=== PATIENT | female | born 1980 | race Caucasian/White ===

== ENCOUNTER 2021-05-16 12:16 | Day surgery (SDC) | payer MEDICAID ==
[~2021-05-16] VITALS: Ht 162.6 cm; Wt 78.5 kg
[~2021-05-16 12:16] MED LIST: BUPIVACAINE/PF 0.25% ONE; EPINEPHRINE 1 MG/ML, 1ML ONE
[2021-05-16] MEDS ORDERED: INSU100C SQ-INSULIN (13:13)
[2021-05-16] MEDS ORDERED: INSU100V8 SQ (13:13)
[2021-05-16] MEDS ORDERED: MIDAZOLAM 1 MG/ML, 2ML ONE (13:13)
[2021-05-16] MEDS ORDERED: FENTANYL PF 100 MCG/2ML ONE ×4 (13:14→14:27)
[2021-05-16] MEDS ORDERED: CHLORHEXIDINE 15 ML UDC PO ONE (13:30)
[2021-05-16] MEDS ORDERED: LACTATED RINGERS 1,000 ML IV SCH (13:30)
[2021-05-16 13:32] LABS: HCG UR SG 1.012 (1.003-1.030)
[2021-05-16 13:35] VITALS: BP 134/84
[2021-05-16] MEDS ORDERED: PROPOFOL 10 MG/ML, 20ML ONE (13:41)
[2021-05-16] MEDS ORDERED: ONDANSETRON 2MG/ML, 2ML ONE ×2 (13:41→14:47)
[2021-05-16] MEDS ORDERED: ACETAMINOPHEN 650 MG/20.3 ML UDC ONE (14:12)
[2021-05-16] MEDS ORDERED: OXYcodone 5 MG/5 ML ORAL.SOL UDC ONE ×2 (14:12→14:27)
[2021-05-16] MEDS: FENTANYL PF 100 MCG/2ML IV PRN ×3 (14:15→14:35)
[2021-05-16] MEDS: OXYcodone 5 MG/5 ML ORAL.SOL UDC PO PRN ×2 (14:24→14:36)
[2021-05-16] MEDS ORDERED: ACETAMINOPHEN 325 MG TABLET PO PRN (14:30)
[2021-05-16] MEDS ORDERED: PROMETHAZINE 25 MG/ML, 1ML IVPush PRN (14:30)
[2021-05-16] MEDS ORDERED: METHOCARBAMOL 1,000 MG in DEXTROSE 5% 100 ML IV PRN (14:30)
== END 2021-05-16 16:25 | disposition home or self-care (01) ==
LOC: OUT 12:16
PROVIDERS: ATTEND Orthopaedic Surgery
DX: M75.01 Adhesive capsulitis of right shoulder (principal); E10.9 Type 1 diabetes mellitus without complications; I25.10 Atherosclerotic heart disease of native coronary artery without angina pectoris; Z20.822 Contact with and (suspected) exposure to COVID-19; Z79.4 Long term (current) use of insulin; Z79.899 Other long term (current) drug therapy
CPT/HCPCS: 23700; 81025; 82962; 87635; J2405; J2704; J3010; J7120; J0171; J2250